=== PATIENT | female | born 1990 | race African-American/Black ===

== ENCOUNTER 2016-12-30 06:58 | Inpatient (IN) ==
[2016-12-30] MEDS ORDERED: BUTORPHANOL 2 MG/ML VIAL IV PRN (07:42)
[2016-12-30] MEDS ORDERED: ONDANSETRON 4 MG/2 ML VIAL IV PRN ×2 (07:42→13:48)
[2016-12-30] MEDS ORDERED: MEPERIDINE 50 MG/1 ML VIAL IV PRN (07:42)
[2016-12-30] MEDS ORDERED: FAMOTIDINE 20 MG/2 ML VIAL IV ONE (07:49)
[2016-12-30] MEDS ORDERED: fentaNYL 2 MCG/ROPIV 0.2% EPID 150 ML EPIDURAL SCH (07:49)
[2016-12-30] MEDS ORDERED: ePHEDrine 50 MG/ML AMP IV PRN (07:49)
[2016-12-30] MEDS ORDERED: PROMETHAZINE 25 MG/1 ML VIAL IM ONE (07:49)
[2016-12-30] MEDS ORDERED: CITRIC ACID/SODIUM CITRATE 30 ML UDCUP PO ONE (07:49)
[2016-12-30] MEDS ORDERED: hydrOXYzine HCL 25 MG/1 ML VIAL IM PRN (07:49)
[2016-12-30] MEDS ORDERED: diphenhydrAMINE 50 MG/1 ML VIAL IV PRN ×2 (07:49)
[2016-12-30] MEDS ORDERED: LACTATED RINGERS 1,000 ML IV ONE (07:49)
[2016-12-30] MEDS ORDERED: OXYTOCIN/LR 20 UNIT/1,000 ML BAG IV SCH (08:00)
[2016-12-30] MEDS ORDERED: LACTATED RINGERS 1,000 ML IV SCH (08:00)
[2016-12-30 08:05] LABS: Basophils % 0.1 % (0.0-0.8); Eosinophils % 0.4 % (0.00-10.9); Hematocrit 38.2 VOL% (35.7-47.0); Hemoglobin 13.6 GM/DL (12.0-16.0); Immature Granulocytes % 0.5 %; Immature Granulocytes Absolute 0.04 #; Lymphocytes # 2.1 10*3/uL (1.4-4.0); Lymphocytes % 28.3 % (21.3-54.2); Mean Corpuscular HGB Conc 35.6 GM/DL (32-36); Mean Corpuscular Hemoglobin 31 PG (27-34); Mean Platelet Volume 12.2 FL (9.6-12.0); Monocytes # 0.7 10*3/uL (0.11-0.8); Monocytes % 10.1 % (1.7-12.7); Neutrophils # 4.4 10*3/uL (1.4-7.4); Neutrophils % 60.6 % (38.7-73.9); Platelet Count 111 T/CUMM (130-400); Red Blood Count 4.34 MC/CUMM (3.8-5.5); Red Cell Distribution Width 12.9 % (9.3-17.3); White Blood Count 7.3 T/CUMM (4-12)
[2016-12-30 08:15] LABS: INR 0.9; PT Patient Result 9.5 SECS; Partial Thromboplastin Time 27.2 SECS (0-40)
[2016-12-30 08:37] LABS: Alanine Aminotransferase 16 U/L (13-56); Albumin 2.6 G/DL (3.4-5.0); Alkaline Phosphatase 169 U/L (45-117); Aspartate Amino Transferase 13 U/L (0-37); Bilirubin,Total < 0.39 MG/DL (0.2-1.0); Blood Urea Nitrogen 9 MG/DL (7-18); Calcium 8.9 MG/DL (8.5-10.1); Glucose 73 MG/DL (74-106); Osmolality,Calculated 276.4 MOS/KG (273-304); Potassium 4.1 MMOL/L (3.5-5.1); Sodium 140 MMOL/L (136-145); Total Protein 6.5 G/DL (6.4-8.3)
[2016-12-30] MEDS: LACTATED RINGERS 1,000 ML IV SCH ×3 (08:41→16:08)
[2016-12-30] MEDS ORDERED: ONDANSETRON 4 MG/2 ML VIAL ONE (11:00)
[2016-12-30] MEDS ORDERED: TERBUTALINE 1 MG/1 ML VIAL SUBCUT ONE ×2 (11:02→11:06)
--- NOTE | 2016-12-30 12:33 | OB/GYN Progress Note ---
FOCUS PULLER - PN: Subj Interval history: Patient is a 26 y/o primigravida with an EDC of 01/18/17 per 6.2 wk ultrasound with EGA @ 37.2 wks. She receives care with Dr. Garcia that presented for SROM. She indicated that she has had some irregular contractions. I was asked to evaluate the patient and insert and IUPC per Dr. Nettles. Hx of liver transplant @ 4 years old, vitamin D deficiency, and rubella equivocal. Records are available and reviewed. O: FHTs @ 120s with variable and prolonged decelerations noted. Deceleration to 80s x 3 min noted with good variability, slow return to baseline. UCs every 7-8 min/80-90 sec/ mild SVE 3 cm/ 50%/ -3 IUPC inserted easily without difficulty without any flashback noted O2 via facemask on presently Epidural intact A: IUP @ 37.2 wks, Category II FHR tracing, Prolonged variable deceleration P: Consulted Dr. Nettles withi prolonged deceleration noted withi slow return to baseline and good variability with pt cervical dilatation- agreed with plan to prepare for primary section. Risks of surgery discussed with patient to include pain, infection, injury to bladder and/or bowel, injury to other organs- verbalized understanding. Discussed with patient that she may not be able to eat or tolerate po fluids/ foods until late this evening or tomorrow Encouraged early ambulation after delivery- verbalized understanding Questions answered to patient's and family's desired level of understanding. Results - Labs CBC & BMP: 12/30/16 07:52 12/30/16 07:52
[2016-12-30 12:58] LABS: Apearance,Urine CLEAR (Clear); Bacteria,Urine Occasional /HPF (Few); Bilirubin,Urine Negative (Negative); Blood, Urine Negative (Negative); Glucose,Urine (UA) Negative (Negative); Ketones,Urine Negative (Negative); Nitrite,Urine Negative (Negative); Protein,Urine Negative; RBC,Urine <1 /HPF (0-4); Urine Color Straw (Yellow); Urine Specific Gravity 1.003 (1.001-1.035); Urine Urobilinogen < 2.0 EU/DL (0.2-1.0); WBC,Urine <1 /HPF (0-6)
[2016-12-30] MEDS ORDERED: TISSUE ADHESIVE 1 EACH APPLICATOR TOP ONE (13:33)
--- NOTE | 2016-12-30 13:34 | OB/GYN History & Physical ---
History of Present Illness History of present illness: Covering attending Pt. 26y/o @ 37+2 wks presents to labor and delivery with leakage of fluid since 5am today. + contractions. no vaginal bleeding or decreased movement. Pt. pnc with Dr. 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 Pt. being followed by Dr. [facility]. Home Medications Medication Instructions Recorded Confirmed Type Vit No.130/Iron/Folic 1 each PO DAILY 12/08/16 12/30/16 History [ Vitamins] Tacrolimus [Prograf] 1 mg PO DAILY 12/08/16 12/30/16 History Allergies Allergy/AdvReac Type Severity Reaction Status Date / Time No Known Allergies Allergy Verified 12/26/16 10:18 12 point system: reviewed and no additional remarkable complaints except as stated - Respiratory Respiratory: Present: as per HPI - Gastrointestinal Gastrointestinal: Present: as per HPI Medical,Surgical,& Family Hx - Medical History Gastrointestinal: History of: Liver Problems (Liver transplant age 4) Reproductive: No history of: Ectopic , Complication - Surgical History Thoracic Surgeries: Surgical HX of;: Organ Transplant (Liver Transplant age 4) Abdominal Surgeries: Surgical HX of: Abdominal Surgery (Liver transplant age4) Reproductive Surgeries: Patient denies;: Section - Family History Family History: Denies;: Family Anesthesia Reaction, Family Cancer, Family Diabetes, Family Heart Disease, Family Hematology, Family Hypertension, Family Psychiatric Problems, Family Stroke, Additional Family History - Social History Smoking Status: Never smoker Frequency of Alcohol Use: None Type of Drug Use: 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 - Constitutional General appearance: no acute distress - Antepartum / Post Antepartum Exam Cervix - Dilatation: 3cm Effacement: 50 Station: -3 Rupture: grossly ruptured Presentation: vertex Heart Rate: reactive, category 2 tracing with recurrent decelerations - Respiratory Respiratory exam: Present: clear to auscultation bilaterally - Cardiovascular Cardiovascular exam: Present: regular rate and rhythm - Extremities Exam Extremities exam: Present: normal inspection Assessment and Plan (1) PROM with onset of labor within 24 hours of rupture Status: Acute Current Visit: Yes (2) heart rate non-reassuring affecting management of mother Status: Acute Assessment and plan: 1. Dr. Garcia notified by nursing and gave admit orders, 2. Terbutaline given and decelerations resolved however once patient started vika again decelerations returned. No change in cervical exam since admission. Pt. counseled regarding inability for the fetus to tolerate labor and the need for a delivery. Pt. agrees to the management. risk/ benefits/ alternatives discussed and patient expressed her understanding. All questions answered. Consent signed and witnessed. Current Visit: Yes (3) Liver transplant recipient Status: Acute Current Visit: Yes (4) Thrombocytopenia Status: Acute Assessment and plan: repeat labs Current Visit: Yes Results - Labs CBC & BMP: 12/30/16 07:52 12/30/16 07:52
[2016-12-30 13:38] LABS: Cord Arterial Blood HCO3 28.2 MMOL/L
[2016-12-30 13:39] LABS: Cord Venous Blood HCO3 21.3 MMOL/L; Cord Venous Blood PCO2 50.5 MMHG; Cord Venous Blood PO2 23.7
[2016-12-30] MEDS ORDERED: OXYTOCIN/LR 20 UNIT/1,000 ML BAG IV ONE (13:48)
[2016-12-30] MEDS ORDERED: ACETAMINOPHEN 325 MG TABLET PO PRN (13:48)
[2016-12-30] MEDS ORDERED: RHO(D) IMMUNE GLOBULIN 300 MCG SYRINGE IM ONE (13:48)
--- NOTE | 2016-12-30 13:48 | Operative Note ---
Date of procedure: 12/30/16 Pre-op diagnosis: 26y/o @ 37+2wks with SROM, hx liver transplant, with NRFHT Post-op diagnosis: same Procedure: FINDINGS: A living Female , vertex , MENG position, weight 5lbs 5oz, scores 9 and 9. DESCRIPTION OF PROCEDURE: The patient was brought to the operating room after her spinal preparation, and Starr had been performed. The abdomen was prepped and draped in the normal sterile fashion and tested for analgesia. When found to be adequate, a low-abdominal Pfannenstiel incision was made with the first knife and carried down to the fascia with the bovie. The fascia was cleared of subcutaneous tissue. Bleeding points were clamped with hemostats and Bovie coagulated. The fascia was incised in the midline and extended laterally with curved Chavez scissors. Jigar clamps were placed on the fascial edge, anteriorly. The rectus muscles were by sharp dissection. The rectus muscles were divided in the midline by sharp dissection. The parietoperitoneum was grasped with hemostats and carefully entered and the incision extended with Metzenbaum scissors. The bladder blade was inserted. The visceroperitoneum was grasped with smooth pickups, entered with Metzenbaum scissors, and extended laterally. The bladder flap was created by gentle blunt dissection and placed behind the bladder blade. The lower uterine segment was carefully incised with a scalpel and extended laterally with bandage scissors. A living female infant was delivered atraumatically from the vertex presentation. The baby was suctioned and cried immediately, and was handed to the pediatric team in attendance. The placenta was delivered with gentle uterine massage. The uterus was explored with a wet lap sponge and found to be clear of membranes. The angles of the incision were sutured 0 vicryl in a locked running fashion. Hemostasis was carefully checked and found to be satisfactory. The fallopian tubes and ovaries were inspected and found to be normal bilaterally. Interceed was then placed over the uterine incision. The peritoneum was approximated using 2. 0 chromic in a running fashion. The muscle was reapproximated using 2.0 chromic in an interrupted fashion. The fascia was closed with 0-Vicryl in a running fashion. The subcutaneous tissue was approximated with interrupted 2-0 plain catgut. The skin was closed in a subcuticular fashion with 4.0 monocryl. The patient was transferred to the recovery room in good condition. Anesthesia: epidural Surgeon / Physician: Katie Nettles Biblical Studies Professor: Lori Modi Estimated blood loss: other (750cc) Specimens: other (placenta, cord, membranes) Condition: stable Disposition: floor Results - Labs CBC & BMP: 12/30/16 07:52 12/30/16 07:52 Discharge Plan - Discharge Medications No Action Tacrolimus [Prograf] 1 mg PO DAILY Vit No.130/Iron/Folic [ Vitamins] 1 each PO DAILY - Follow Up or Referral - Forms/Instructions
[2016-12-30] MEDS ORDERED: MORPHINE 10 MG/10 ML VIAL ONE (13:54)
[2016-12-30 18:55] LABS: Basophils % 0.2 % (0.0-0.8); Eosinophils % 0.1 % (0.00-10.9); Hematocrit 36.7 VOL% (35.7-47.0); Hemoglobin 12.8 GM/DL (12.0-16.0); Immature Granulocytes % 1.6 %; Immature Granulocytes Absolute 0.18 #; Lymphocytes # 1.5 10*3/uL (1.4-4.0); Lymphocytes % 13.4 % (21.3-54.2); Mean Corpuscular HGB Conc 34.9 GM/DL (32-36); Mean Corpuscular Hemoglobin 31 PG (27-34); Mean Corpuscular Volume 89.5 FL (87-102); Mean Platelet Volume 11.5 FL (9.6-12.0); Monocytes # 0.7 10*3/uL (0.11-0.8); Monocytes % 6.1 % (1.7-12.7); Neutrophils # 9.1 10*3/uL (1.4-7.4); Neutrophils % 78.6 % (38.7-73.9); Platelet Count 84 T/CUMM (130-400); White Blood Count 11.5 T/CUMM (4-12)
[2016-12-30 23:20] LABS: Basophils % 0.1 % (0.0-0.8); Hematocrit 37.9 VOL% (35.7-47.0); Hemoglobin 13.4 GM/DL (12.0-16.0); Immature Granulocytes Absolute 0.11 #; Lymphocytes # 0.9 10*3/uL (1.4-4.0); Lymphocytes % 8.9 % (21.3-54.2); Mean Corpuscular HGB Conc 35.4 GM/DL (32-36); Mean Corpuscular Hemoglobin 32 PG (27-34); Mean Corpuscular Volume 89.8 FL (87-102); Mean Platelet Volume 11.5 FL (9.6-12.0); Monocytes # 0.7 10*3/uL (0.11-0.8); Monocytes % 6.9 % (1.7-12.7); Neutrophils # 8.8 10*3/uL (1.4-7.4); Neutrophils % 83.1 % (38.7-73.9); Platelet Count 83 T/CUMM (130-400); Red Blood Count 4.22 MC/CUMM (3.8-5.5); White Blood Count 10.6 T/CUMM (4-12)
[2016-12-30 23:34] LABS: Alanine Aminotransferase 12 U/L (13-56); Albumin 2.2 G/DL (3.4-5.0); Alkaline Phosphatase 124 U/L (45-117); Aspartate Amino Transferase 26 U/L (0-37); Bilirubin,Total < 0.39 MG/DL (0.2-1.0); Blood Urea Nitrogen 5 MG/DL (7-18); Calcium 8.7 MG/DL (8.5-10.1); Glucose 101 MG/DL (74-106); Osmolality,Calculated 271.7 MOS/KG (273-304); Sodium 138 MMOL/L (136-145); Total Protein 5.3 G/DL (6.4-8.3); Uric Acid 5.8 MG/DL (2.6-6.0)
[2016-12-30 23:42] LABS: PT Patient Result 10.5 SECS; Partial Thromboplastin Time 30.1 SECS (0-40)
[2016-12-31] MEDS: LACTATED RINGERS 1,000 ML IV SCH ×3 (02:00→14:18)
[2016-12-31 05:34] LABS: Basophils % 0.1 % (0.0-0.8); Hematocrit 36.1 VOL% (35.7-47.0); Hemoglobin 12.9 GM/DL (12.0-16.0); Immature Granulocytes % 0.6 %; Immature Granulocytes Absolute 0.07 #; Lymphocytes # 0.8 10*3/uL (1.4-4.0); Mean Corpuscular HGB Conc 35.7 GM/DL (32-36); Mean Corpuscular Hemoglobin 32 PG (27-34); Mean Corpuscular Volume 88.5 FL (87-102); Mean Platelet Volume 11.7 FL (9.6-12.0); Monocytes # 0.8 10*3/uL (0.11-0.8); Monocytes % 7.3 % (1.7-12.7); Neutrophils # 9.6 10*3/uL (1.4-7.4); Platelet Count 85 T/CUMM (130-400); Red Blood Count 4.08 MC/CUMM (3.8-5.5); Red Cell Distribution Width 12.9 % (9.3-17.3); White Blood Count 11.3 T/CUMM (4-12)
[2016-12-31 05:55] LABS: Hypochromasia Slight; Platelet Estimate Decreased
[2016-12-31] MEDS: DOCUSATE SODIUM 100 MG CAPSULE PO SCH ×3 (06:09→21:56)
[2016-12-31] MEDS: MULTIVITAMIN (PRENATAL) TABLET PO SCH (08:23)
[2016-12-31] MEDS ORDERED: diphenhydrAMINE CAP 25 MG CAPSULE PO PRN (09:53)
--- NOTE | 2016-12-31 12:01 | Anesthesia Post-Op ---
Anesthesia Post OP - Post Ansesthetic Evaluation Patient seen in post op: Yes Resp: within normal limits CV: within normal limits Mental: within normal limits Temp: within normal limits [id number]: within normal limits Nausea and Vomiting: within normal limits Pain: within normal limits
--- NOTE | 2016-12-31 13:05 | Progress Note ---
Assessment and Plan (1) delivery delivered Status: Acute Assessment and plan: Routine postop care. Current Visit: Yes Family Medicine PN Sub Interval history: First postop day, no problems except routine discomforts. Exam (Progress Note) - Constitutional Vitals: Period Temp Pulse Resp BP Sys/Vargas Pulse Ox Last 24 Hr 97.8 F-99.1 F 81-112 18-20 113-144/70-94 95-99 General appearance: no acute distress - Head Head exam: Present: normal inspection - Neck Neck exam: Present: normal inspection - Respiratory Respiratory exam: Present: clear to auscultation bilaterally. Absent: accessory muscle use - Cardiovascular Cardiovascular exam: Present: regular rate and rhythm - GI/Abdominal GI/Abdominal exam: Present: distended, soft. Absent: tenderness, rebound - Extremities Exam Extremities exam: Present: normal inspection - Back Exam Back exam: Present: normal inspection - Neurological Exam Neurological exam: Present: alert, oriented X3 - Psychiatric Psychiatric exam: Present: normal affect, normal mood. Absent: anxious, depressed, flat affect - Skin Skin exam: Present: normal color, warm, dry Results - Labs CBC & BMP: 12/31/16 05:24 12/30/16 22:52
[2016-12-31] MEDS: IBUPROFEN 800 MG TABLET PO PRN (13:10)
[2016-12-31] MEDS: MAGNESIUM HYDROXIDE SUSP 30 ML UDCUP PO PRN (21:57)
[2016-12-31] MEDS: SIMETHICONE CHEW 80 MG TABLET PO PRN (21:57)
[2017-01-01] MEDS: IBUPROFEN 800 MG TABLET PO PRN ×2 (00:15→13:53)
[2017-01-01] MEDS: MULTIVITAMIN (PRENATAL) TABLET PO SCH (08:50)
[2017-01-01] MEDS: SIMETHICONE CHEW 80 MG TABLET PO PRN ×2 (08:50→20:12)
[2017-01-01] MEDS: MAGNESIUM HYDROXIDE SUSP 30 ML UDCUP PO PRN ×2 (08:50→20:12)
[2017-01-01] MEDS: DOCUSATE SODIUM 100 MG CAPSULE PO SCH ×2 (08:50→20:12)
--- NOTE | 2017-01-01 12:19 | Pathology Report from [facility] ---
[facility] ACCESSION # : [id number] PATIENT NAME : Summer Beckett ORDERING DR : JUAN DANIEL SHAY DO CLINICAL HX: Primary C/S for distress POST-OP DX: Same SPECIMEN INFO: Placenta GROSS DESCRIPTION: Received fresh labeled with the patients name and consists of a 307 gram placenta which measures 15.0 x 14.9 x 2.4 cm. membranes are pink-shelby, translucent. The umbilical cord is eccentrically inserted, contains three vessels and is 8.6 cm. The surface is blue-minor with a large area of subchorionic hemorrhage measuring up to 12.0 cm. The maternal surface is dark beefy red with intact cotyledons. There are areas of fibrin present which measure 1.5 cm. Sections submitted: A membranes and cord, B and maternal surfaces. DIAGNOSIS FOR SUMMER BECKETT: PLACENTA, MEMBRANES, UMBILICAL CORD: Focal placental infarction with dystrophic calcification, moderate intervillous blood. Tri-vessel umbilical cord, eccentrically inserted. Membranes with focal chronic inflammation and attached blood. COLLECTED DATE: 12/31/2016 [facility] REPORT DATE: 01/01/2017 ELECTRONICALLY SIGNED BY: Javier Newton M.D. 01/01/2017 - 9:55:48 SARAH BETH
--- NOTE | 2017-01-01 17:07 | Discharge Summary ---
Hospital Course - Hospital Course Hospital Course: This primigravida was admitted close to term with ruptured membranes and variable decelerations with every contraction. She had a significant medical history of a previous liver transplant being on antirejection drugs. However, her had been uncomplicated. In the emergency section was done by Dr. Nettles with a healthy baby born with good Apgars and a short umbilical cord with mild SGA. Patient's postoperative course has been completely uneventful. She is being discharged on the morning in satisfactory condition. Diagnosis - Discharge Diagnosis (1) delivery delivered Status: Acute Discharge Plan - Discharge Data Disposition: Disch To Home/Self Care Condition at Discharge: Stable Discharge Diet: advance to your usual diet Activity: resume usual activities as tolerated Hygiene: no restrictions, may shower Weight Bearing at Discharge: full weight bearing Driving: not until seen by doctor Contact your physician if you experience:: fever over 101, Difficulty voiding, Redness or swelling, Nausea/Vomiting, Shortness of breath, Bleeding, pain uncontrolled by pain medications - Discharge Medications New HYDROcodone/ACETAMIN 5-325 [Sasabe 5-325] 1 - 2 tablet PO Q6H PRN #30 tablet PRN Reason: Pain Severe (8-10) Ibuprofen 600 mg PO Q4-6H PRN #30 tablet PRN Reason: Pain No Action Tacrolimus [Prograf] 1 mg PO DAILY Vit No.130/Iron/Folic [ Vitamins] 1 each PO DAILY - Follow Up or Referral - Forms/Instructions Exam - Constitutional Vitals: Period Temp Pulse Resp BP Sys/Vargas Pulse Ox Last 24 Hr 97.6 F-98.9 F 90-105 18-100 119-140/79-92 96-100 General appearance: no acute distress - Head Head exam: Present: normal inspection - Neck Neck exam: Present: normal inspection - Respiratory Respiratory exam: Present: clear to auscultation bilaterally. Absent: accessory muscle use - Cardiovascular Cardiovascular exam: Present: regular rate and rhythm - GI/Abdominal GI/Abdominal exam: Present: distended, hypoactive bowel sounds, other ( Tympanitic) - Extremities Exam Extremities exam: Present: normal inspection - Back Exam Back exam: Present: normal inspection - Neurological Exam Neurological exam: Present: alert, oriented X3 - Psychiatric Psychiatric exam: Present: normal affect, normal mood - Skin Skin exam: Present: warm, dry DS: Provider Date of admission: 12/30/16 06:58 Primary care physician: Dahlia Mosley DMD Attending physician on admission: Kapil Garcia DO Consults: 12/30/16 07:42 Consult to Anesthesiology [CONS] Routine Consulting Provider: Reason for Anesthesiology: Epidural Consult Comment: Epidural for pain managment 12/30/16 13:49 Consult to Charrer [CONS] Routine Consult Charrer: Breast Feeding Discharging clinician: Kapil Garcia DO Expected date of discharge: 01/02/17
[2017-01-01] MEDS ORDERED: BISACODYL 10 MG SUPP RECTAL PRN (17:14)
[2017-01-02] MEDS: MAGNESIUM HYDROXIDE SUSP 30 ML UDCUP PO PRN (07:40)
[2017-01-02 07:43] VITALS: BP 132/90
[2017-01-02] MEDS: MULTIVITAMIN (PRENATAL) TABLET PO SCH (08:00)
[2017-01-02] MEDS: DOCUSATE SODIUM 100 MG CAPSULE PO SCH (08:00)
[2017-01-02] MEDS ORDERED: MEASLES/MUMPS/RUBELLA VACCINE 0.5 ML VIAL SUBCUT ONE (11:00)
[2017-01-02] MEDS ORDERED: DIPH/TET/ACEL PERT BOOSTER VACCINE 0.5 ML VIAL IM ONE (11:00)
== END 2017-01-02 13:35 | disposition home or self-care (01) | DRG 765 ==
LOC: N.LD 06:58 → N.OB 16:31
PROVIDERS: ADMIT Obstetrics & Gynecology; ATTEND Obstetrics & Gynecology
PROC: LDCSECT (ICD-10-PCS; 2016-12-30 12:20)